=== PATIENT | female | born 1935 | race Caucasian/White ===

== ENCOUNTER → 2020-10-27 | Outpatient (REF) | payer MEDICARE, BC | LOC: M LAB REF 09:24 | PROVIDERS: ATTEND Dermatology | DX: L57.0 Actinic keratosis (principal); L90.5 Scar conditions and fibrosis of skin ==

== ENCOUNTER 2023-01-30 06:01 | Day surgery (SDC) | payer MEDICARE, BC ==
[~2023-01-30] VITALS: Ht 160 cm; Wt 65.3 kg
[~2023-01-30 06:01] MED LIST: ALBU8.5H INH; AREDS PO; BENA25CA4 PO; BSS IRRIG/VANCO(10MG)/TOBRA(5MG)/EPINEPH(1:1000-0.5CC)500ML BAG-ORONLY IR ONE; CALC600T60 PO; CLAR10CA3 PO; CYCLOPENTOLATE 1% OPHTH SOLN 2ML BTL OS SCH; D31000CA4 PO; FURO20TA2 PO; LIDOCAINE 3.5 % 1ML OPHTH TOPICAL GEL OU ONE; OFLOXACIN 0.3 % (OCUFLOX) OPTH SOL 5ML OS ONE; PHENYLEPHRINE 10% OPHTH SOL 5ML OS PRN; PHENYLEPHRINE 2.5% OPHTH SOL 2ML OS SCH; ROPI0.5T3 PO; TROPICAMIDE 1% OPHTH SOLN 15ML OS SCH
[2023-01-30] MEDS ORDERED: LIDOCAINE 1% SDV 5ML VIAL As Ordered ONE (06:54)
[2023-01-30] MEDS ORDERED: CEFUROXIME 1MG/0.1ML INTRACAMERAL INJ As Ordered ONE (06:56)
[2023-01-30] MEDS ORDERED: fentaNYL 100 MCG/2 ML INJECTION As Ordered ONE (07:03)
[2023-01-30] MEDS ORDERED: MIDAZOLAM INJ 2MG/2ML VIAL As Ordered ONE (07:03)
[2023-01-30 07:50] VITALS: BP 144/66
== END 2023-01-30 08:04 | disposition home or self-care (01) ==
LOC: M SDC 06:01
PROVIDERS: ATTEND Ophthalmology
DX: H25.12 Age-related nuclear cataract, left eye (principal); Z88.8 Allergy status to other drugs, medicaments and biological substances; Z79.899 Other long term (current) drug therapy; Z87.891 Personal history of nicotine dependence
CPT/HCPCS: 66984; J0697; J2250; J3010; V2632

== ENCOUNTER 2023-03-05 11:31 | Day surgery (SDC) | payer MEDICARE, BC ==
[~2023-03-05] VITALS: Ht 160 cm; Wt 64.9 kg
[~2023-03-05 11:31] MED LIST changes: +CEFUROXIME 1MG/0.1ML INTRACAMERAL INJ As Ordered ONE; +CYCLOPENTOLATE 1% OPHTH SOLN 2ML BTL OD SCH; -CYCLOPENTOLATE 1% OPHTH SOLN 2ML BTL OS SCH; +LIDOCAINE 1% SDV 5ML VIAL As Ordered ONE; +OFLOXACIN 0.3 % (OCUFLOX) OPTH SOL 5ML OD ONE; -OFLOXACIN 0.3 % (OCUFLOX) OPTH SOL 5ML OS ONE; +PHENYLEPHRINE 10% OPHTH SOL 5ML OD PRN; -PHENYLEPHRINE 10% OPHTH SOL 5ML OS PRN; +PHENYLEPHRINE 2.5% OPHTH SOL 2ML OD SCH; -PHENYLEPHRINE 2.5% OPHTH SOL 2ML OS SCH; +TROPICAMIDE 1% OPHTH SOLN 15ML OD SCH; -TROPICAMIDE 1% OPHTH SOLN 15ML OS SCH
[2023-03-05] MEDS ORDERED: MIDAZOLAM INJ 2MG/2ML VIAL As Ordered ONE (11:45)
[2023-03-05] MEDS ORDERED: fentaNYL 100 MCG/2 ML INJECTION As Ordered ONE (11:45)
[2023-03-05 12:33] VITALS: BP 144/66; TEMP 98.4; O2SAT 100
== END 2023-03-05 13:11 | disposition home or self-care (01) ==
LOC: M SDC 11:31
PROVIDERS: ATTEND Ophthalmology
DX: H25.11 Age-related nuclear cataract, right eye (principal); K52.9 Noninfective gastroenteritis and colitis, unspecified; F32.A Depression, unspecified; J45.909 Unspecified asthma, uncomplicated; G25.81 Restless legs syndrome; Z91.010 Allergy to peanuts; Z91.018 Allergy to other foods; Z88.8 Allergy status to other drugs, medicaments and biological substances
CPT/HCPCS: 66984; J0697; J2250; J3010; V2632